=== PATIENT | female | born 1955 | race Caucasian/White ===

== ENCOUNTER 2024-02-12 07:39 | Day surgery (SDC) | payer MEDICARE ==
[~2024-02-12 07:39] MED LIST: BETADINE 5% OPHTHALMIC 30 ML OP ONE; Lactated Ringers 1,000 ML IV SCH; NON-FORMULARY ITEM OP ONE; cefUROXime sodium 0.005 GM in Sodium Chloride Flush 30 ML*** 0.5 ML IJ ONE
[2024-02-12] MEDS ORDERED: Epinephrine Preservative Free 1 MG/ML IJ ONE (07:40)
[2024-02-12] MEDS ORDERED: Lactated Ringers 1,000 ML IV ONE (08:06)
[2024-02-12] MEDS: TETRACAINE 0.5% STERI-UNIT SOL OP ONE ×2 (08:13→08:58)
[2024-02-12] MEDS: Ak-Dilate OPHTHALMIC*** 1.065 ML, Cyclogyl 1% OPHTH SOL 1.065 ML, GATIFLOXACIN 0.5% OPH... OP ONE (08:15)
[2024-02-12] MEDS: Lactated Ringers 1,000 ML IV SCH (08:58)
[2024-02-12] MEDS ORDERED: Zofran 4 MG/2 ML VIAL IV PRN (09:30)
[2024-02-12] MEDS ORDERED: DIPRIVAN 200 MG/20 ML IV ONE (10:21)
[2024-02-12 10:45] VITALS: PULSE 85; RESP 14; TEMP 97.6; O2SAT 94
[2024-02-12] MEDS: ACETAZOLAMIDE 250 MG TABLET PO ONE (10:49)
[2024-02-12 11:03] VITALS: BP 123/76
== END 2024-02-12 11:15 | disposition home or self-care (01) ==
LOC: SDC 07:39
PROVIDERS: ATTEND Ophthalmology
DX: H25.812 Combined forms of age-related cataract, left eye (principal); E11.9 Type 2 diabetes mellitus without complications
CPT/HCPCS: 82947; C1780; J0171; J2704; A9270-GY

== ENCOUNTER 2024-03-11 06:03 | Day surgery (SDC) | payer MEDICARE ==
[~2024-03-11 06:03] MED LIST changes: -Lactated Ringers 1,000 ML IV SCH
[2024-03-11] MEDS ORDERED: MIOSTAT IO ONE (06:04)
[2024-03-11] MEDS ORDERED: Lactated Ringers 1,000 ML IV ONE (06:25)
[2024-03-11] MEDS: Lactated Ringers 1,000 ML IV SCH (06:31)
[2024-03-11] MEDS: TETRACAINE 0.5% STERI-UNIT SOL OP ONE ×2 (06:58→07:32)
[2024-03-11] MEDS: Ak-Dilate OPHTHALMIC*** 1.065 ML, TROPICAMIDE 1.065 ML, GATIFLOXACIN 0.5% OPHTH DROPS 0... OP ONE (06:59)
[2024-03-11] MEDS ORDERED: Zofran 4 MG/2 ML VIAL IV PRN (07:00)
[2024-03-11] MEDS ORDERED: Epinephrine Preservative Free 1 MG/ML IJ ONE (07:30)
[2024-03-11] MEDS ORDERED: DIPRIVAN 200 MG/20 ML IV ONE ×2 (08:35→08:57)
[2024-03-11 09:09] VITALS: RESP 12; TEMP 97
[2024-03-11] MEDS: ACETAZOLAMIDE 250 MG TABLET PO ONE (09:15)
[2024-03-11 09:28] VITALS: BP 118/93; PULSE 70; O2SAT 96
== END 2024-03-11 09:39 | disposition home or self-care (01) ==
LOC: SDC 06:03
PROVIDERS: ATTEND Ophthalmology
DX: H25.811 Combined forms of age-related cataract, right eye (principal); I10 Essential (primary) hypertension; E11.9 Type 2 diabetes mellitus without complications
CPT/HCPCS: 82947; 93005; J0171; J2704; A9270-GY